=== PATIENT | male | born 1995 | race Caucasian/White ===

== ENCOUNTER 2017-07-04 17:26 | Emergency (ER) | payer SELFPAY ==
[2017-07-04] MEDS ORDERED: methylPREDNISolone 125 MG* 2 ML VIAL IM ONE (17:31)
--- NOTE | 2017-07-04 17:40 | UC ---
Allergic Reaction HPI - HPI Summary HPI Summary: Patient was here accompaning anouther patient, starte itching under his arm, took off his shirt to find large elevated hives under both axilla, began to spread over the stomach, back and legs. did not eat prior to arrival, did change his shirt, unknown cause, denies any SOB, or respiratory symptoms - History of Current Complaint Stated Complaint: HIVES/SKIN COMP. Time Seen by Provider: 07/04/17 17:30 Hx Obtained From: Patient Onset/Duration: Sudden Onset, Lasting Minutes Severity Initially: Moderate Severity Currently: Moderate Location: Diffuse Character: Pruritus, Hives Aggravating Factor(s): Nothing Alleviating Factor(s): Nothing - Allergies/Home Medications Allergies/Adverse Reactions: Allergies Allergy/AdvReac Type Severity Reaction Status Date / Time Diphenhydramine Allergy Mild Hives Verified 05/07/15 16:58 [From Benadryl] latex Allergy Hives Uncoded 10/28/15 16:17 pommegranates Allergy Swelling Uncoded 01/13/16 16:52 Of Face,Lips,& Throat PMH/Surg Hx/FS Hx/Imm Hx Previously Healthy: Yes - Surgical History Surgical History: None - Family History Known Family History: Positive: None Negative: Cardiac Disease, Hypertension - Social History Alcohol Use: None Substance Use Type: Marijuana Substance Use Comment - Amount & Last Used: 06/30/15 Smoking Status (MU): Never Smoked Tobacco Review of Systems Constitutional: Negative Skin: Rash Eyes: Negative ENT: Negative Respiratory: Negative Cardiovascular: Negative Gastrointestinal: Negative Genitourinary: Negative Motor: Negative Neurovascular: Negative Musculoskeletal: Negative Neurological: Negative Psychological: Negative Is Patient Immunocompromised?: No All Other Systems Reviewed And Are Negative: Yes Physical Exam Triage Information Reviewed: Yes Appearance: Well-Appearing, Well-Nourished, Pain Distress Vital Signs Reviewed: Yes Eye Exam: Normal ENT: Positive: Pharynx normal, TMs normal Dental Exam: Normal Neck exam: Normal Respiratory Exam: Normal Respiratory: Positive: Chest non-tender, Lungs clear, Normal breath sounds Cardiovascular Exam: Normal Cardiovascular: Positive: RRR, No Murmur, Pulses Normal Abdominal Exam: Normal Abdomen Description: Positive: Nontender, No Organomegaly, Soft Bowel Sounds: Positive: Present Musculoskeletal Exam: Normal Musculoskeletal: Positive: Strength Intact, ROM Intact, No Edema Neurological Exam: Normal Neurological: Positive: Alert, Muscle Tone Normal Psychological Exam: Normal Skin: Positive: Other - hives diffuse Allergic Reaction Course/Dx - Course Course Of Treatment: hx obtained, exam performed, meds reviewed, vs taken solumedrol given with improvment - Differential Dx/Diagnosis Differential Diagnosis/HQI/PQRI: Urticaria Provider Diagnoses: urticaria Discharge - Discharge Plan Condition: Stable Disposition: HOME Prescriptions: Cetirizine HCl [Zyrtec Allergy 10 MG TAB] 10 mg PO DAILY #30 cap predniSONE TAB* [Deltasone TAB*] 20 mg PO DAILY #18 tab Patient Education Materials: General Allergic Reaction (ED) Referrals: Non Staff,Doctor [Primary Care Provider] - Additional Instructions: 1. you were given a large dose of steroids today. 2. Start takeing the prednisone tomorrow morning. 3. Start a daily zyrtec for the next 2 weeks. 4. Follow up in ER if you develop any increasing symtpoms, difficulty breathing , throat itching or swelling, facial swelling, hives are getting worse.
[2017-07-04 17:41] VITALS: BP 120/70
== END 2017-07-04 18:11 | disposition home or self-care (01) ==
LOC: UCCORT 17:26
DX: L50.9 Urticaria, unspecified (principal)
CPT/HCPCS: 96372; 99211; G0463; J2930

== ENCOUNTER 2017-07-14 11:11 | Emergency (ER) | payer BC ==
[2017-07-14 11:32] VITALS: BP 117/71
--- NOTE | 2017-07-14 13:37 | UC ---
General HPI - HPI Summary HPI Summary: Patient presents to with CC of request for an anti-anxiety medication. He states he has a fear of dentists to the extreme of "passing out" at the thought or while in the chair at a dentists office. He has an appt next week on for appt to get 2 root canals. He has asked the dentist to provide sedation or an anti-anxiety medication. Dentist refuses. He is here for a medication to help with his appt. He has never had anxiety or depression medications prior. Denies history of anxiety/depression. Denies drug use or ETOH. - History of Current Complaint Chief Complaint: UCDentalProblem Stated Complaint: DENTAL/ANXIETY Time Seen by Provider: 07/14/17 11:40 Hx Obtained From: Patient Onset/Duration: Sudden Onset Timing: Constant Onset Severity: Mild Current Severity: Mild Pain Intensity: 3 - Allergy/Home Medications Allergies/Adverse Reactions: Allergies Allergy/AdvReac Type Severity Reaction Status Date / Time Diphenhydramine Allergy Mild Hives Verified 07/14/17 11:25 [From Benadryl] latex Allergy Hives Uncoded 07/14/17 11:25 pommegranates Allergy Swelling Uncoded 07/14/17 11:25 Of Face,Lips,& Throat Home Medications: Home Medications Cephalexin CAP* [Keflex 500 CAP*] 1 cap DAILY 07/14/17 [History Confirmed ] PMH/Surg Hx/FS Hx/Imm Hx Previously Healthy: Yes - Surgical History Surgical History: Yes Surgery Procedure, Year, and Place: RIGHT upper eyelid I/D of cyst - Family History Known Family History: Positive: None Negative: Cardiac Disease, Hypertension - Social History Occupation: Employed Full-time Lives: With Family Alcohol Use: None Substance Use Type: None Substance Use Comment - Amount & Last Used: 06/30/15 Smoking Status (MU): Never Smoked Tobacco - Immunization History Most Recent Influenza Vaccination: none 2017 Review of Systems Constitutional: Negative Skin: Negative Respiratory: Negative Cardiovascular: Negative Neurovascular: Negative Musculoskeletal: Negative Neurological: Negative Psychological: Negative Is Patient Immunocompromised?: No All Other Systems Reviewed And Are Negative: Yes Physical Exam Triage Information Reviewed: Yes Appearance: Well-Appearing, Well-Nourished Vital Signs: Initial Vital Signs Temp 98 F 07/14/17 11:26 Pulse 79 07/14/17 11:26 Resp 16 07/14/17 11:26 BP 117/71 07/14/17 11:26 Pulse Ox 98 07/14/17 11:26 Vital Signs Reviewed: Yes Eye Exam: Normal Eyes: Positive: Conjunctiva Clear Neck exam: Normal Neck: Positive: Supple, No Lymphadenopathy Respiratory Exam: Normal Respiratory: Positive: Chest non-tender, Lungs clear Cardiovascular Exam: Normal Cardiovascular: Positive: RRR Musculoskeletal Exam: Normal Musculoskeletal: Positive: Strength Intact Neurological Exam: Normal Neurological: Positive: Alert Psychological Exam: Normal Psychological: Positive: Normal Response To Family Skin Exam: Normal Course/Dx - Course Course Of Treatment: patient is given 1 tab 1mg ativan for his appt. I have discussed the risks and benefits as well as side effects. He has no history on file of drug abuse and has never taken anxiety or depression medications in the past. He has a friend at bedside who will be with him during the procedure and to provide a safe ride home. he is ok with discharge plan. - Differential Dx - Multi-Symptom Provider Diagnoses: Anxiety about procedure Discharge - Discharge Plan Condition: Stable Disposition: HOME Prescriptions: LORazepam TAB(*) [Ativan 1 MG TAB (*)] 1 mg PO SEE INSTRUCTIONS PRN #1 tab MDD 1 PRN Reason: Anxiety Patient Education Materials: Anxiety (ED) Referrals: Non Staff,Doctor [Primary Care Provider] - Additional Instructions: Take the one ativan 1 hour prior to your appt. Deep breaths and focus on your breathing
== END 2017-07-14 12:23 | disposition home or self-care (01) ==
LOC: UCCORT 11:11
DX: F41.9 Anxiety disorder, unspecified (principal); Z91.040 Latex allergy status; Z91.018 Allergy to other foods
CPT/HCPCS: 99212; G0463

== ENCOUNTER 2018-02-26 10:21 | Emergency (ER) | payer BC ==
[2018-02-26 10:34] VITALS: BP 121/73
[2018-02-26] MEDS ORDERED: Ondansetron ODT TAB* 4 MG PO ONE (10:45)
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
== END 2018-02-26 12:05 | disposition short-term general hospital (02) ==
LOC: UCEAST 10:21
DX: S59.911A Unspecified injury of right forearm, initial encounter (principal); S06.0X1A Concussion with loss of consciousness of 30 minutes or less, initial encounter; Y00.XXXA Assault by blunt object, initial encounter; Y93.9 Activity, unspecified; Y92.9 Unspecified place or not applicable; J45.909 Unspecified asthma, uncomplicated; Z91.040 Latex allergy status

== ENCOUNTER 2018-02-26 12:08 | Emergency (ER) | payer BC ==
[2018-02-26] MEDS ORDERED: Ondansetron INJ* 2 MG/ML VIAL IV ONE (12:22)
--- NOTE | 2018-02-26 13:15 | RAD ---
HISTORY: Chest pain COMPARISONS: March 29, 2005 VIEWS: 1: frontal portable view of the chest at 12:41 PM FINDINGS: LINES AND TUBES: None. CARDIOMEDIASTINAL SILHOUETTE: The cardiomediastinal silhouette is normal for portable technique. PLEURA: The costophrenic angles are sharp. No pleural abnormalities are noted. LUNG PARENCHYMA: The lungs are clear. ABDOMEN: The upper abdomen is clear. There is no subphrenic gas. BONES AND SOFT TISSUES: No bone or soft tissue abnormalities are noted. IMPRESSION: NO ACTIVE CARDIOPULMONARY DISEASE.
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
[2018-02-26] MEDS ORDERED: LORazepam INJ* 2 MG/ML 1 ML VIAL IV PUSH ONE (13:22)
[2018-02-26 13:23] LABS: INR 1.02 (0.77-1.02)
[2018-02-26 13:24] LABS: EGFR Non-African American 111.7 (>60)
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
[2018-02-26 13:44] LABS: ABS Basophils 0 10^3/ul (0-0.2); ABS Eosinophils 0 10^3/ul (0-0.6); ABS Lymphocytes 0.4 10^3/ul (1.0-4.8); ABS Monocytes 0.4 10^3/ul (0-0.8); ABS Neutrophils 11.2 10^3/ul (1.5-7.7); ABS Nucleated RBC 0 10^3/ul; Eosinophil % 0 % (0-6); Hematocrit 42 % (42-52); Hemoglobin 15.3 g/dl (14.0-18.0); Lymphocyte % 3.3 % (25-47); Mean Corpuscular HGB Conc 37 g/dl (31-36); Mean Corpuscular Hemoglobin 31 pg (27-31); Mean Corpuscular Volume 84 fL (80-94); Mean Platelet Volume 7.7 um3 (7.4-10.4); Nucleated Red Blood Cells % 0.4; Platelet Count 270 10^3/ul (150-450); Red Blood Count 4.94 10^6/ul (4.0-5.4); Red Cell Distribution Width 15 % (10.5-15)
[2018-02-26] MEDS ORDERED: Ketorolac INJ* 30 MG/ML 1 ML VIAL IV PUSH ONE (14:01)
[2018-02-26] MEDS ORDERED: Metoclopramide IV* 5 MG/ML 2 ML VIAL IV ONE (14:02)
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
[2018-02-26 15:15] VITALS: BP 107/54
== END 2018-02-26 15:12 | disposition home or self-care (01) ==
LOC: ED 12:08
DX: S09.90XA Unspecified injury of head, initial encounter (principal); M79.631 Pain in right forearm; Y04.2XXA Assault by strike against or bumped into by another person, initial encounter; Y92.9 Unspecified place or not applicable; R07.9 Chest pain, unspecified
CPT/HCPCS: 36415; 70450; 71045; 80053; 82550; 82553; 83605; 83735; 83874; 83880; 84484; 85025; 85610; 85730; 93005; 96374; 96375; 99283; J1885; J2060; J2405; J2765

== ENCOUNTER 2018-03-03 10:06 | Emergency (ER) | payer BC ==
[2018-03-03 10:40] VITALS: BP 107/69
--- NOTE | 2018-03-03 11:48 | RAD ---
HISTORY: Nausea, head injury COMPARISONS: February 26, 2018 TECHNIQUE: Multiple contiguous axial CT scans were obtained of the head without intravenous contrast. FINDINGS: HEMORRHAGE/INFARCT: There is no hemorrhage or acute infarct. MASSES/SHIFT: There is no mass or shift. EXTRA-AXIAL SPACES: There are no extra-axial fluid collections. SULCI AND VENTRICLES: The sulci and ventricles are normal in size and position for the patient's stated age. CEREBRUM: There are no focal parenchymal abnormalities. BRAINSTEM: There are no focal parenchymal abnormalities. CEREBELLUM: There are no focal parenchymal abnormalities. VESSELS: The vessels are grossly normal. PARANASAL SINUSES: The paranasal sinuses are clear. ORBITS: The orbits are unremarkable. BONES AND SOFT TISSUE: No bone or soft tissue abnormalities are noted. OTHER: None IMPRESSION: NO ACUTE INTRACRANIAL PATHOLOGY.
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
== END 2018-03-03 12:00 | disposition home or self-care (01) ==
LOC: UCEAST 10:06
DX: F07.81 Postconcussional syndrome (principal); R11.0 Nausea; G44.309 Post-traumatic headache, unspecified, not intractable; Y92.9 Unspecified place or not applicable; Z91.040 Latex allergy status; Z91.018 Allergy to other foods; Z88.8 Allergy status to other drugs, medicaments and biological substances; Y08.89XA Assault by other specified means, initial encounter
CPT/HCPCS: 70450; 99212; G0463

== ENCOUNTER 2018-05-27 17:20 | Emergency (ER) | payer BC ==
[2018-05-27] MEDS ORDERED: NS 0.9% 1000 ML* 1,000 ML IV ONE (17:53)
[2018-05-27] MEDS ORDERED: Ketorolac INJ* 30 MG/ML 1 ML VIAL IV PUSH ONE (17:53)
[2018-05-27] MEDS ORDERED: Ondansetron INJ* 2 MG/ML VIAL IV ONE (17:53)
[2018-05-27 17:57] LABS: ABS Basophils 0 10^3/ul (0-0.2); ABS Eosinophils 0.4 10^3/ul (0-0.6); ABS Lymphocytes 1.3 10^3/ul (1.0-4.8); ABS Monocytes 0.5 10^3/ul (0-0.8); ABS Neutrophils 3.3 10^3/ul (1.5-7.7); ABS Nucleated RBC 0 10^3/ul; Eosinophil % 7.2 % (0-6); Hematocrit 41 % (42-52); Hemoglobin 15.3 g/dl (14.0-18.0); Lymphocyte % 23.5 % (25-47); Mean Corpuscular HGB Conc 37 g/dl (31-36); Mean Corpuscular Hemoglobin 31 pg (27-31); Mean Corpuscular Volume 84 fL (80-94); Mean Platelet Volume 7.5 um3 (7.4-10.4); Nucleated Red Blood Cells % 0.1; Platelet Count 246 10^3/ul (150-450); Red Cell Distribution Width 14 % (10.5-15); White Blood Count 5.6 10^3/ul (3.5-10.8)
--- NOTE | 2018-05-27 18:02 | ED ---
GI/ HPI - HPI Summary HPI Summary: 22 male presents with abdominal pain for the past week. States that is greatest in his right lower quadrant and radiates up to his right upper quadrant. He said his had this pain before 2 years ago and had a scope done and nothing was found. He admits to nausea but denies any vomiting. No blood in his stool. Last bowel movement was yesterday and was normal. No diarrhea constipation. He denies any dysuria, urgency, frequency or hematuria. No testicular pain. No flank pain. States pain is sharp in nature. He admits to decrease in appetite. Pain does not change with food. No previous abdominal surgeries. No fevers. Has history of asthma. States pain is worse when he walks. The pain is better when he sits. He hasn't taking anything for his pain. - History of Current Complaint Chief Complaint: EDAbdPain Time Seen by Provider: 05/27/18 17:37 Stated Complaint: ABD PAIN-SENT FROM [facility] Pain Intensity: 9 - Allergy/Home Medications Allergies/Adverse Reactions: Allergies Allergy/AdvReac Type Severity Reaction Status Date / Time diphenhydramine Allergy Hives Verified 05/27/18 17:32 latex Allergy Hives Verified 05/27/18 17:32 pomegranate Allergy Swelling Verified 05/27/18 17:32 Of Face,Lips,& Throat PMH/Surg Hx/FS Hx/Imm Hx Endocrine/Hematology History: Denies: Hx Diabetes, Hx Thyroid Disease Cardiovascular History: Denies: Hx Hypertension Respiratory History: Reports: Hx Asthma Denies: Hx Chronic Obstructive Pulmonary Disease (COPD) GI History: Denies: Hx Ulcer - Surgical History Surgery Procedure, Year, and Place: RIGHT upper eyelid I/D of cyst Infectious Disease History: No Infectious Disease History: Denies: Hx Clostridium Difficile, Hx Hepatitis, Hx Human Immunodeficiency Virus (HIV), Hx of Known/Suspected MRSA, Hx Shingles, Hx Tuberculosis, Hx Known/ Suspected VRE, Hx Known/Suspected VRSA, History Other Infectious Disease, Traveled Outside the [place] in Last 30 Days - Family History Known Family History: Positive: None, Other - [place] Negative: Cardiac Disease, Hypertension Family History: Per patient and mother, no FHx of [place] or sudden below the age of 55 - Social History Alcohol Use: None Hx Substance Use: No Substance Use Type: Reports: Marijuana Substance Use Comment - Amount & Last Used: 06/30/15 Smoking Status (MU): Never Smoked Tobacco Review of Systems Negative: Fever Negative: Chest Pain Negative: Shortness Of Breath Positive: Abdominal Pain, Nausea. Negative: Vomiting, Diarrhea All Other Systems Reviewed And Are Negative: Yes Physical Exam Triage Information Reviewed: Yes Vital Signs On Initial Exam: Initial Vitals Temp Pulse Resp BP Pulse Ox 98.8 F 80 16 134/84 100 05/27/18 17:28 05/27/18 17:28 05/27/18 17:28 05/27/18 17:28 05/27/18 17:28 Vital Signs Reviewed: Yes Appearance: Positive: Well-Appearing Skin: Positive: Warm, Dry Head/Face: Positive: Normal Head/Face Inspection Eyes: Positive: Normal, Conjunctiva Clear ENT: Positive: Pharynx normal Respiratory/Lung Sounds: Positive: Clear to Auscultation, Breath Sounds Present Cardiovascular: Positive: Normal, RRR Abdomen Description: Positive: Soft, [place] Tenderness, Other: - tenderness right upper and lower quadrant, pos lyons Bowel Sounds: Positive: Present Musculoskeletal: Positive: Normal Neurological: Positive: Normal Psychiatric: Positive: Normal Diagnostics - Vital Signs Vital Signs Temp Pulse Resp BP Pulse Ox 05/27/18 17:28 98.8 F 80 16 134/84 100 - Laboratory Lab Results: Lab Results 05/27/18 Range/Units 17:49 WBC 5.6 (3.5-10.8) 10^3/ul RBC 4.90 (4.00-5.40) 10^6/ul Hgb 15.3 (14.0-18.0) g/dl Hct 41 L (42-52) % MCV 84 (80-94) fL MCH 31 (27-31) pg MCHC 37 H (31-36) g/dl RDW 14 (10.5-15) % Plt Count 246 (150-450) 10^3/ul MPV 7.5 (7.4-10.4) um3 Neut % (Auto) 59.9 (38-83) % Lymph % (Auto) 23.5 L (25-47) % [place] % (Auto) 8.8 H (0-7) % Eos % (Auto) 7.2 H (0-6) % Baso % (Auto) 0.6 (0-2) % Absolute Neuts (auto) 3.3 (1.5-7.7) 10^3/ul Absolute Lymphs (auto) 1.3 (1.0-4.8) 10^3/ul Absolute Monos (auto) 0.5 (0-0.8) 10^3/ul Absolute Eos (auto) 0.4 (0-0.6) 10^3/ul Absolute Basos (auto) 0 (0-0.2) 10^3/ul Absolute Nucleated RBC 0 10^3/ul Nucleated RBC % 0.1 Result Diagrams: 05/27/18 17:49 05/27/18 17:49 Lab Statement: Any lab studies that have been ordered have been reviewed, and results considered in the medical decision making process. - CT abd CT Interpretation: Positive (See Comments) - IMPRESSION: 1. Right lower quadrant epiploic appendagitis. 2. No other acute findings. Specifically, normal appendix CT Interpretation Completed By: Radiologist - Ultrasound No standard instances Ultrasound Interpretation: Positive (See Comments) - IMPRESSION: THE RIGHT KIDNEY IS SMALLER THAN EXPECTED FOR AGE MEASURING UP TO 9.2 CM. OTHERWISE UNREMARKABLE ULTRASOUND OF THE RIGHT UPPER QUADRANT. Ultrasound Interpretation Completed By: Radiologist Re-Evaluation - Re-Evaluation First Eval Re-Evaluation Time: 19:06 Change: Improved Comment: no longer nauseous after pain meds and nausea meds GIGU Course/Dx - Course Course Of Treatment: 22 male presents with abdominal pain for the past week. States that is greatest in his right lower quadrant and radiates up to his right upper quadrant. He said his had this pain before 2 years ago and had a scope done and nothing was found. He admits to nausea but denies any vomiting. No blood in his stool. Last bowel movement was yesterday and was normal. No diarrhea constipation. He denies any dysuria, urgency, frequency or hematuria. No testicular pain. No flank pain. States pain is sharp in nature. He admits to decrease in appetite. Pain does not change with food. No previous abdominal surgeries. No fevers. Has history of asthma. States pain is worse when he walks. The pain is better when he sits. He hasn't taking anything for his pain. On exam tenderness in right upper and right lower quadrant. White blood cell count normal. crp normal. bilirubin 2.3. gallbladder u/s normal. urine normal CT shows epiploic appendicitis. told to take ibuprofen for pain. told if develops fevers to return. patient understand and agrees with plan. - Diagnoses Differential Diagnoses - Male: Appendicitis, Gall Bladder Disease, Urinary Tract Infection Provider Diagnoses: Epiploic appendagitis Discharge - Sign-Out/Discharge Documenting (check all that apply): Patient Departure - Discharge Plan Condition: Good Disposition: HOME Prescriptions: Ondansetron ODT TAB* [Zofran 4 MG Odt TAB*] 4 mg PO Q6H PRN #12 tab.odt PRN Reason: Nausea Patient Education Materials: Abdominal Pain (ED) Referrals: Austin Barba MD [Medical Doctor] - [facility] [Outside] Additional Instructions: Take zofran every 6 hours as needed for nausea Take ibuprofen or Tylenol for pain as needed every 6 hours Est care with primary Follow up with GI if needed Return to ED if develop any new or worsening symptoms - Billing Disposition and Condition Condition: GOOD Disposition: Home
[2018-05-27 18:12] LABS: EGFR Non-African American 118.1 (>60)
[2018-05-27] MEDS ORDERED: Iohexol 300* (CONTRAST) 10 ML SDV IV ONE (18:28)
--- NOTE | 2018-05-27 18:42 | RAD ---
HISTORY: RUQ pain COMPARISONS: None TECHNIQUE: Multiple transverse and longitudinal ultrasound images were obtained of the right upper quadrant of the abdomen using grayscale and color Doppler imaging. FINDINGS: LIVER: The liver is normal in shape, size, contour, and echogenicity. There are no focal parenchymal masses. There is normal hepatopedal flow of the portal vein on Doppler imaging. BILIARY TREE: There is no intrahepatic or extrahepatic biliary dilatation. The common duct measures 0.3 cm. GALLBLADDER: The gallbladder is well-visualized. There is no cholelithiasis, gallbladder wall thickening, pericholecystic fluid, or sonographic Wall[place] sign. PANCREAS: The head of the pancreas is unremarkable. The tail of the pancreas is not well visualized secondary to overlying bowel gas. RIGHT KIDNEY: The kidney is somewhat smaller than expected for age measuring up to 9.2 centers. There is no hydronephrosis or nephrolithiasis. The right kidney measures 9.2 x 4.9 x 5.1 cm. AORTA AND IVC: The aorta and IVC are unremarkable. FLUID: There are no pleural effusions. There is no free fluid within the hepatorenal recess. OTHER FINDINGS: None. IMPRESSION: THE RIGHT KIDNEY IS SMALLER THAN EXPECTED FOR AGE MEASURING UP TO 9.2 CM. OTHERWISE UNREMARKABLE ULTRASOUND OF THE RIGHT UPPER QUADRANT.
[2018-05-27 19:07] LABS: Urine Appearance Clear; Urine Blood Negative (Negative); Urine Color Yellow; Urine Ketones Negative (Negative); Urine Protein Negative (Negative); Urine Specific Gravity 1.012 (1.010-1.030); Urine Urobilinogen Positive (Negative)
--- NOTE | 2018-05-27 21:28 | RAD ---
EXAM: CT Abdomen and Pelvis With Intravenous Contrast CLINICAL HISTORY: 22 years old, male; Pain; Abdominal pain; Localized; Right; Patient HX: Rlq pain x 1 week with no n/v/d; Additional info: Right side abd pain TECHNIQUE: Axial computed tomography images of the abdomen and pelvis with intravenous contrast. Coronal and sagittal reformatted images were created and reviewed. CONTRAST: 85 mL of OMNIPAQUE administered intravenously. COMPARISON: No relevant prior studies available. FINDINGS: Lung bases: Unremarkable. No mass. No consolidation. ABDOMEN: Liver: Unremarkable. No mass. Gallbladder and bile ducts: Unremarkable. No calcified stones. No ductal dilation. Pancreas: Unremarkable. No mass. No ductal dilation. Spleen: Unremarkable. No splenomegaly. Adrenals: Unremarkable. No mass. Kidneys and ureters: Unremarkable. No solid mass. No hydronephrosis. Stomach and bowel: Unremarkable. No obstruction. No mucosal thickening. PELVIS: Appendix: Normal-appearing appendix. Bladder: Unremarkable. No mass. Reproductive: Unremarkable as visualized. ABDOMEN and PELVIS: Intraperitoneal space: Focal area of fat stranding in the right lower quadrant anteriorly likely represents epiploic appendagitis. No free air. No significant fluid collection. Bones/joints: No acute fracture. No dislocation. Soft tissues: Small fat-containing right inguinal hernia. Vasculature: Unremarkable. No abdominal aortic aneurysm. Lymph nodes: Unremarkable. No enlarged lymph nodes. IMPRESSION: 1. Right lower quadrant epiploic appendagitis. 2. No other acute findings. Specifically, normal appendix. R0
[2018-05-27 23:56] VITALS: BP 113/63
== END 2018-05-27 22:17 | disposition home or self-care (01) ==
LOC: ED 17:20
DX: K63.89 Other specified diseases of intestine (principal); Z91.040 Latex allergy status; Z88.8 Allergy status to other drugs, medicaments and biological substances
CPT/HCPCS: 36415; 74177; 76705; 80053; 81003; 83690; 85025; 86140; 86308; 96374; 96375; 99283; J1885; J2405; Q9967

== ENCOUNTER 2019-04-02 19:42 | Emergency (ER) | payer BC ==
[2019-04-02 20:10] VITALS: BP 133/80
--- NOTE | 2019-04-02 20:15 | UC ---
[facility] HPI - HPI Summary HPI Summary: 23 y/o male presents to the urgent care Pt is being treated for pain since hernia surgery since 09/30/18. Pt is taking lots of ibuprofen and hydrocodone and cannot sleep because of the pain, jittery, nauseated d/t pain. - History of Current Complaint Chief Complaint: UCAbdominalPain Stated Complaint: CRACKED TOOTH Time Seen by Provider: 04/02/19 20:12 Hx Obtained From: Patient Pain Intensity: 10 - Allergies/Home Medications Allergies/Adverse Reactions: Allergies Allergy/AdvReac Type Severity Reaction Status Date / Time diphenhydramine Allergy Hives Verified 04/02/19 20:10 latex Allergy Hives Verified 04/02/19 20:10 pomegranate Allergy Swelling Verified 04/02/19 20:10 Of Face,Lips,& Throat Home Medications: Home Medications Hydrocodone/Acetaminophen [Hydrocodone/Acetaminophen 5-325 mg] 2 tab PO Q6H PRN 04/02/19 [History Confirmed 04/02/19] Ibuprofen TAB* [Motrin TAB* 600 MG] 600 mg PO Q6H PRN 04/02/19 [History Confirmed 04/02/19] PMH/Surg Hx/FS Hx/Imm Hx - Surgical History Surgical History: Yes Surgery Procedure, Year, and Place: Hernia repair, 09/26. RIGHT upper eyelid I/ D of cyst - Family History Known Family History: Positive: None, Other - [place] Negative: Cardiac Disease, Hypertension Family History: Per patient and mother, no FHx of [place] or sudden below the age of 55 - Social History Alcohol Use: None Substance Use Type: Marijuana Substance Use Comment - Amount & Last Used: daily Smoking Status (MU): Never Smoked Tobacco - Immunization History Most Recent Influenza Vaccination: none 2017 Physical Exam Vital Signs: Initial Vital Signs Temp 100.4 F 04/02/19 20:02 Pulse 82 04/02/19 20:02 Resp 16 04/02/19 20:02 BP 133/80 04/02/19 20:02 Pulse Ox 100 04/02/19 20:02 Dental Complaint Course/Dx - Differential Dx/Diagnosis Differential Diagnosis/Dx: Other Provider Diagnosis: Cyclic vomiting syndrome, Right lower quadrant abdominal pain Discharge - Discharge Plan Referrals: No Primary Care Phys,NOPCP [Primary Care Provider] -
[2019-04-02] MEDS ORDERED: Ondansetron ODT TAB* 4 MG PO ONE (20:16)
[2019-04-02] MEDS ORDERED: NS 0.9% 1000 ML** 1,000 ML IV ONE (20:44)
--- NOTE | 2019-04-02 20:50 | UC ---
Abdominal Pain Male HPI - HPI Summary HPI Summary: 23 y/o male presents to the urgent care accompany by sister c/o RLQ abdominal pain, N/V and RT upper jaw pain w/ a fracture molar and CARLOS since yesterday. Pt reports Hx of RT inguinal hernia repair on 09/2018 and despite surgery he still presents w/ exacerbation of his abdominal pain, He is being managed at [facility] by Surgeon Dr Sisi Ceja who did his surgery. Pt report upper jaw pain started yesterday afternoon. He smoke Marijuana and the he took Ibuprofen 600mg PO and 2 tabs of Ackley w/o any relief of his dental pain. Then, his abdominal pain started. He couldn't sleep last night due to abdominal pain, chills and Nausea. This morning he took Ibuprofen 800mg PO and went to work. He didn't eat anything today. He couldn't work well due to pain. He went home and then N/ V started w/ multiple episodes, w/ chills. Abdominal pain,now is 10/10 worse in the RLQ which he states it hasn't been so severe before. Last summer is when abdominal pain started,he first went to ER and Dx w/ epliploic appendigits and since then he has been w/ recurrent episodes of RLQ abdominal pain w/o complete resolution. He has developed RT side CARLOS for the past 2 moths, he has an schedule MRI in 2 days. He also has schedule an appt w/ dentist to remove fractured molar in a few day. Pt denies fever, SOB, respiratory distress, chest pain, diarrhea, constipation, urinary symptoms. Dr Ceja has Rx lately Tramadol PO for pain which he still has at home. - History of Current Complaint Chief Complaint: UCAbdominalPain Stated Complaint: CRACKED TOOTH Time Seen by Provider: 04/02/19 20:12 Hx Obtained From: Patient Onset/Duration: Gradual Onset, Lasting Days - 1 day, Still Present, Worse Since - this morning Timing: Constant Severity Initially: Mild Severity Currently: Moderate Pain Intensity: 10 Pain Scale Used: 0-10 Numeric Location: Discrete At: RLQ, Other - RT upper jaw pain, Radiates to: Inguinal - RT inguinal. Hx RT inguinal repair surgery in 09/2018 Character: Sharp Aggravating Factor(s): Food Alleviating Factor(s): Nothing Associated Signs And Symptoms: Positive: Decreased Appetite, Nausea, Vomiting. Negative: Fever, Back Pain, Constipation, Urinary Symptoms - Risk Factors Testicular Torsion: Negative Cardiac Risk Factors: Negative - Allergies/Home Medications Allergies/Adverse Reactions: Allergies Allergy/AdvReac Type Severity Reaction Status Date / Time diphenhydramine Allergy Hives Verified 04/02/19 20:10 latex Allergy Hives Verified 04/02/19 20:10 pomegranate Allergy Swelling Verified 04/02/19 20:10 Of Face,Lips,& Throat Home Medications: Home Medications Hydrocodone/Acetaminophen [Hydrocodone/Acetaminophen 5-325 mg] 2 tab PO Q6H PRN 04/02/19 [History Confirmed 04/02/19] Ibuprofen TAB* [Motrin TAB* 600 MG] 600 mg PO Q6H PRN 04/02/19 [History Confirmed 04/02/19] PMH/Surg Hx/FS Hx/Imm Hx Previously Healthy: Yes - Pt denies PMHX - Surgical History Surgical History: Yes Surgery Procedure, Year, and Place: Hernia repair, 09/26. RIGHT upper eyelid I/ D of cyst - Family History Known Family History: Positive: None, Other - [place] Negative: Cardiac Disease, Hypertension Family History: Per patient and mother, no FHx of [place] or sudden below the age of 55 - Social History Alcohol Use: None Substance Use Type: Marijuana Substance Use Comment - Amount & Last Used: daily Smoking Status (MU): Never Smoked Tobacco - Immunization History Most Recent Influenza Vaccination: none 2016 Review of Systems All Other Systems Reviewed And Are Negative: Yes Constitutional: Positive: Chills Skin: Positive: Negative Eyes: Positive: Negative ENT: Positive: Dental Pain - RT upper jaw pain w/ fracture molar Respiratory: Positive: Negative Cardiovascular: Positive: Negative Gastrointestinal: Positive: Abdominal Pain - RLQ adominal pain, Vomiting, Nausea Genitourinary: Positive: Negative Motor: Positive: Negative Neurovascular: Positive: Negative Musculoskeletal: Positive: Negative Neurological: Positive: Headache Psychological: Positive: Negative Is Patient Immunocompromised?: No Physical Exam - Summary Physical Exam Summary: Vital Signs Reviewed: Yes General:Patient is a well developed and nourished male w/ severe pain distress and not respiratory distress. Eyes: Positive: Conjunctiva Clear - PERRLA, EOMI, fundi grossly normal ENT: Positive: Normal ENT inspection, Hearing grossly normal, Pharynx normal, TMs normal Neck: Positive: Supple, Nontender, No Lymphadenopathy Respiratory: Positive: Chest non-tender, Lungs clear, Normal breath sounds, No respiratory distress Cardiovascular: Positive: RRR,S1 and S2 present, No Murmur, Pulses Normal, Brisk Capillary Refill Abdomen Description: Positive: Abd: Flat with no distention. No surface trauma , RLQ w/ scar around inguinal area. hyperactive bowel sounds present in all four quadrants. diffuse tenderness,mild guarding specailly on RLQ, no rigidity to palpation. No masses palpated, no pulsation in epigastric area. No organomegaly. Negative [place] signs. Positive periumbilical tenderness. No rebound in the lower quadrants. NT over McBurneys point. Good femoral pulses bilaterally. No hernia noted. No CVAT bilaterally Musculoskeletal: Positive: Strength Intact, ROM Intact, No Edema,FROM in all major joints, no edema, no cyanosis or clubbing. Neuro: Alert and oriented x 3. No acute neurological deficits. Speech is normal. Psychological: WNL Skin: Dry and warm Triage Information Reviewed: Yes Vital Signs: Initial Vital Signs Temp 100.4 F 04/02/19 20:02 Pulse 82 04/02/19 20:02 Resp 16 04/02/19 20:02 BP 133/80 04/02/19 20:02 Pulse Ox 100 04/02/19 20:02 Abd Pain Male Course/Dx - Course Course Of Treatment: 23 y/o male presents to the urgent care accompany by sister c/o RLQ abdominal pain, N/V and RT upper jaw pain w/ a fracture molar and CARLOS since yesterday. Pt reports Hx of RT inguinal hernia repair on 09/2018 and despite surgery he still presents w/ exacerbation of his abdominal pain, He is being managed at [facility] by Surgeon Dr Sisi Ceja who did his surgery. Pt report upper jaw pain started yesterday afternoon. He smoke Marijuana and the he took Ibuprofen 600mg PO and 2 tabs of Ackley w/o any relief of his dental pain. Then, his abdominal pain started. He couldn't sleep last night due to abdominal pain, chills and Nausea. This morning he took Ibuprofen 800mg PO and went to work. He didn't eat anything today. He couldn't work well due to pain. He went home and then N/ V started w/ multiple episodes, w/ chills. Abdominal pain,now is 10/10 worse in the RLQ which he states it hasn't been so severe before. Last summer is when abdominal pain started,he first went to ER and Dx w/ epliploic appendigits and since then he has been w/ recurrent episodes of RLQ abdominal pain w/o complete resolution. He has developed RT side CARLOS for the past 2 moths, he has an schedule MRI in 2 days. He also has schedule an appt w/ dentist to remove fractured molar in a few day. Pt denies fever, SOB, respiratory distress, chest pain, diarrhea, constipation, urinary symptoms. Dr Ceja has Rx lately Tramadol PO for pain which he still has at home. Hx obtained. Pt is Hemodynamically stable, febrile 100.4, vomiting w/ hyperactive bowel sounds present in all four quadrants. RLQ abdominal tenderness, w/ guarding and postive McBurney's point tenderness and RT upper jaw fracture molar #3 on examination. Pt smoke Marijuana yesterday and mixed w/ Ibuprofen PO and 2 tabs of Ackley PO, Pt w/ possible cyclic vomiting over night. However, I think Pt needs a higher level of care to r/o appendicitis, obstruction, or other abdominal abnormality. I discusses Pt' symptoms w w/ Dr Costa who agrees Pt should be further manage at [facility]. Pt given Zofran PO and IV fluids. Pt transferred by [facility]. I discussed Pt's symptoms w/ OLGA Ho who accepted the patient . Pt left the clinic hemodynamically stable , A&OX3 - Differential Dx/Clinical Impression Differential Diagnosis/HQI/PQRI: Appendicitis, Bowel Obstruction, Constipation, Other - cyclic vomiting Provider Diagnosis: Cyclic vomiting syndrome, Right lower quadrant abdominal pain, Pain due to dental caries Discharge - Sign-Out/Discharge Documenting (check all that apply): Patient Departure - Pt transfer [facility] for further evalaution and treatment for intractable abdomianl pain All imaging exams completed and their final reports reviewed: No Studies - Discharge Plan Condition: Stable Disposition: TRANS HIGHER LVL OF CARE FAC Referrals: No Primary Care Phys,NOPCP [Primary Care Provider] - - Billing Disposition and Condition Condition: STABLE Disposition: Trans Higher Lvl of Care Fac
== END 2019-04-02 21:10 | disposition short-term general hospital (02) ==
LOC: UCEAST 19:42
DX: G43.A0 Cyclical vomiting, in migraine, not intractable (principal); R10.31 Right lower quadrant pain; K02.9 Dental caries, unspecified
CPT/HCPCS: 96360; 99213; A9270-GY; G0463

== ENCOUNTER 2019-04-02 21:30 | Emergency (ER) | payer BC ==
[2019-04-02] MEDS ORDERED: Ondansetron INJ* 2 MG/ML VIAL IV ONE (21:47)
[2019-04-02] MEDS ORDERED: NS 0.9% 1000 ML** 1,000 ML IV ONE (21:47)
[2019-04-02] MEDS ORDERED: Ketorolac INJ* 30 MG/ML 1 ML VIAL IV ONE (22:20)
[2019-04-02] MEDS ORDERED: Morphine 4 MG/ML VIAL (1 ml) 4 MG/ML VIAL IV ONE (22:20)
[2019-04-02 22:21] LABS: ABS Eosinophils 0.1 10^3/ul (0-0.6); ABS Lymphocytes 0.6 10^3/ul (1.0-4.8); ABS Monocytes 0.5 10^3/ul (0-0.8); ABS Neutrophils 7.4 10^3/ul (1.5-7.7); Eosinophil % 0.8 %; Hematocrit 42 % (42-52); Hemoglobin 15.5 g/dL (14.0-18.0); Lymphocyte % 7.2 %; Mean Corpuscular HGB Conc 37 g/dL (31-36); Mean Corpuscular Hemoglobin 32 pg (27-31); Mean Corpuscular Volume 86 fL (80-94); Mean Platelet Volume 7.5 fL (7.4-10.4); Nucleated Red Blood Cells % 0.1; Platelet Count 254 10^3/uL (150-450); Red Blood Count 4.89 10^6 /uL (4.18-5.48); Red Cell Distribution Width 15 % (10-15); White Blood Count 8.6 10^3/uL (3.5-10.8)
[2019-04-02 22:37] LABS: ALT 11 U/L (7-52); AST 14 U/L (13-39); Albumin 4.7 g/dL (3.2-5.2); Albumin/Globulin Ratio 1.7 (1-3); Alkaline Phosphatase 59 U/L (34-104); Anion Gap 9 mmol/L (2-11); Blood Urea Nitrogen 5 mg/dL (6-24); C Reactive Protein < 1.00 mg/L (<8.01); CO2 Carbon Dioxide 25 mmol/L (22-32); Calcium 9.6 mg/dL (8.6-10.3); Chloride 106 mmol/L (101-111); EGFR African American 164.9 (>60); EGFR Non-African American 136.3 (>60); Globulin 2.7 g/dL (2-4); Glucose 110 mg/dL (70-100); Potassium 3.5 mmol/L (3.5-5.0); Sodium 140 mmol/L (135-145); Total Protein 7.4 g/dL (6.4-8.9)
[2019-04-02] MEDS ORDERED: Iohexol 300* (CONTRAST) 10 ML SDV IV ONE (22:48)
--- NOTE | 2019-04-03 01:12 | ED ---
Complex/Multi-Sys Presentation - HPI Summary HPI Summary: Patient complains of persistent right lower quadrant pain 6 months since right inguinal hernia surgery at [facility]. Abdominal pain is constant, daily, has been evaluated by original hernia surgeon with no definitive diagnosis. Also complains of persistent right-sided headache 2 months with associated nausea. Headache described as right-sided, constant, associated with nausea and photophobia. Has MRI pending this coming Tuesday. Also complains of right- sided tooth pain 1 month with dentist appointment pending this Tuesday for tooth removal. Patient has existing prescription for tramadol for pain. Denies fever, cough, sore throat, CP, SOB, N/V/D, change in urine, change in BM , penile or testicular symptoms. Medical history is asthma. Abdominal surgical history is hernia repair September 2018. - History Of Current Complaint Chief Complaint: EDAbdPain Time Seen by Provider: 04/02/19 21:45 Hx Obtained From: Patient Onset/Duration: Gradual Onset, Lasting Weeks Timing: Constant Severity Currently: Severe Severity Initially: Severe Character: Throbbing Associated Signs And Symptoms: Positive: Headache, Nausea, Abdominal Pain, Decreased Oral Intake - Allergies/Home Medications Allergies/Adverse Reactions: Allergies Allergy/AdvReac Type Severity Reaction Status Date / Time diphenhydramine Allergy Hives Verified 04/02/19 20:10 latex Allergy Hives Verified 04/02/19 20:10 pomegranate Allergy Swelling Verified 04/02/19 20:10 Of Face,Lips,& Throat Home Medications: Home Medications Tramadol HCl 50 mg PO Q6HR PRN 04/02/19 [History Confirmed 04/02/19] PMH/Surg Hx/FS Hx/Imm Hx Endocrine/Hematology History: Denies: Hx Diabetes, Hx Thyroid Disease Cardiovascular History: Denies: Hx Hypertension Respiratory History: Reports: Hx Asthma Denies: Hx Chronic Obstructive Pulmonary Disease (COPD) GI History: Denies: Hx Ulcer History: Denies: Hx Renal Disease Sensory History: Denies: Hx Legally Blind Opthamlomology History: Reports: Hx Eye Prosthesis EENT History: Reports: Hx Deafness Neurological History: Reports: Hx Dementia Psychiatric History: Reports: Hx Autism - Surgical History Surgery Procedure, Year, and Place: Hernia repair, 09/26. RIGHT upper eyelid I/ D of cyst Infectious Disease History: No Infectious Disease History: Denies: Hx Clostridium Difficile, Hx Hepatitis, Hx Human Immunodeficiency Virus (HIV), Hx of Known/Suspected MRSA, Hx Shingles, Hx Tuberculosis, Hx Known/ Suspected VRE, Hx Known/Suspected VRSA, History Other Infectious Disease, Traveled Outside the [place] in Last 30 Days - Family History Known Family History: Positive: None, Other - [place] Negative: Cardiac Disease, Hypertension Family History: Per patient and mother, no FHx of [place] or sudden below the age of 55 - Social History Alcohol Use: None Hx Substance Use: No Substance Use Type: Reports: Marijuana Substance Use Comment - Amount & Last Used: daily Smoking Status (MU): Never Smoked Tobacco Review of Systems Constitutional: Negative Positive: Photophobia Positive: Dental Pain Cardiovascular: Negative Respiratory: Negative Positive: Abdominal Pain, Nausea Genitourinary: Negative Musculoskeletal: Negative Skin: Negative Positive: Headache Psychological: Normal All Other Systems Reviewed And Are Negative: Yes Physical Exam - Summary Physical Exam Summary: Neuro exam normal. No evidence of trauma to head or face. No evidence of intraoral abscess. ENT exam otherwise unremarkable. Full range of motion of neck. Abdomen tender in bilateral lower quadrant and suprapubically. Abdominal exam otherwise unremarkable. Triage Information Reviewed: Yes Vital Signs On Initial Exam: Initial Vitals Temp Pulse Resp BP Pulse Ox 98.9 F 68 20 126/80 99 04/02/19 21:30 04/02/19 21:30 04/02/19 21:30 04/02/19 21:30 04/02/19 21:30 Vital Signs Reviewed: Yes Appearance: Positive: Well-Appearing Skin: Positive: Warm Head/Face: Positive: Normal Head/Face Inspection Eyes: Positive: Normal ENT: Positive: Normal ENT inspection Dental: Positive: Dental Fracture @ Neck: Positive: Supple Respiratory/Lung Sounds: Positive: Clear to Auscultation Cardiovascular: Positive: Normal Abdomen Description: Positive: Other: Musculoskeletal: Positive: Normal Neurological: Positive: Normal Psychiatric: Positive: Normal AVPU Assessment: Alert - [place] Coma Scale Best Eye Response: 4 - Spontaneous Best Motor Response: 6 - Obeys Commands Best Verbal Response: 5 - Oriented Coma Scale Total: 15 Diagnostics - Vital Signs Vital Signs Temp Pulse Resp BP Pulse Ox 04/02/19 22:27 22 04/02/19 21:34 73 132/80 100 04/02/19 21:30 98.9 F 68 20 126/80 99 - Laboratory Lab Results: Lab Results 04/02/19 04/02/19 04/02/19 Range/Units 22:13 22:13 22:13 WBC 8.6 (3.5-10.8) 10^3/uL RBC 4.89 (4.18-5.48) 10^6 /uL Hgb 15.5 (14.0-18.0) g/dL Hct 42 (42-52) % MCV 86 (80-94) fL MCH 32 H (27-31) pg MCHC 37 H (31-36) g/dL RDW 15 (10-15) % Plt Count 254 (150-450) 10^3/uL MPV 7.5 (7.4-10.4) fL Neut % (Auto) 86.1 % Lymph % (Auto) 7.2 % [place] % (Auto) 5.5 % Eos % (Auto) 0.8 % Baso % (Auto) 0.4 % Absolute Neuts (auto) 7.4 (1.5-7.7) 10^3/ul Absolute Lymphs (auto) 0.6 L (1.0-4.8) 10^3/ul Absolute Monos (auto) 0.5 (0-0.8) 10^3/ul Absolute Eos (auto) 0.1 (0-0.6) 10^3/ul Absolute Basos (auto) 0.0 (0-0.2) 10^3/ul Absolute Nucleated RBC 0.0 10^3/ul Nucleated RBC % 0.1 Sodium 140 (135-145) mmol/L Potassium 3.5 (3.5-5.0) mmol/L Chloride 106 (101-111) mmol/L Carbon Dioxide 25 (22-32) mmol/L Anion Gap 9 (2-11) mmol/L BUN 5 L (6-24) mg/dL Creatinine 0.71 (0.67-1.17) mg/dL Est GFR ( Amer) 164.9 (>60) Est GFR (Non-Af Amer) 136.3 (>60) BUN/Creatinine Ratio 7.0 L (8-20) Glucose 110 H (70-100) mg/dL Lactic Acid 1.6 (0.5-2.0) mmol/L Calcium 9.6 (8.6-10.3) mg/dL Total Bilirubin 2.10 H (0.2-1.0) mg/dL AST 14 (13-39) U/L ALT 11 (7-52) U/L Alkaline Phosphatase 59 (34-104) U/L C-Reactive Protein < 1.00 (<8.01) mg/L Total Protein 7.4 (6.4-8.9) g/dL Albumin 4.7 (3.2-5.2) g/dL Globulin 2.7 (2-4) g/dL Albumin/Globulin Ratio 1.7 (1-3) Lipase 16 (11.0-82.0) U/L Result Diagrams: 04/02/19 22:13 04/02/19 22:13 Lab Statement: Any lab studies that have been ordered have been reviewed, and results considered in the medical decision making process. Complex Multi-Symp Course/Dx Course Of Treatment: Patient complains of persistent right lower quadrant pain 6 months since right inguinal hernia surgery at [facility]. Abdominal pain is constant, daily, has been evaluated by original hernia surgeon with no definitive diagnosis. Also complains of persistent right-sided headache 2 months with associated nausea. Headache described as right-sided, constant, associated with nausea and photophobia. Has MRI pending this coming Tuesday. Also complains of right-sided tooth pain 1 month with dentist appointment pending this Tuesday for tooth removal. Patient has existing prescription for tramadol for pain. Denies fever, cough, sore throat, CP, SOB, N/V/D, change in urine, change in BM, penile or testicular symptoms. Medical history is asthma. Abdominal surgical history is hernia repair September 2018. Physical exam:Neuro exam normal. No evidence of trauma to head or face. No evidence of intraoral abscess. ENT exam otherwise unremarkable. Full range of motion of neck. Abdomen tender in bilateral lower quadrant and suprapubically. Abdominal exam otherwise unremarkable. Vital signs within normal limits. Labs unremarkable. CT abdomen and pelvis unremarkable. Patient initially told nurse headache had resolved with Toradol and morphine. Subsequently told this provider shortly afterwards that symptoms had not changed. Per [facility] patient has existing prescription for tramadol. Has MRI follow-up in place tomorrow for headache, is being followed by a surgeon for right lower quadrant pain, and has appointment this week to have tooth removed. - Diagnoses Provider Diagnoses: Headache, Right lower quadrant pain, Pain, dental Discharge - Sign-Out/Discharge Documenting (check all that apply): Patient Departure Patient Received Moderate/Deep Sedation with Procedure: No - Discharge Plan Condition: Stable Disposition: HOME Prescriptions: Ondansetron ODT TAB* [Zofran 4 MG Odt TAB*] 4 mg PO Q8H PRN 4 Days #14 tab.odt PRN Reason: Nausea Patient Education Materials: Acute Headache (ED), Abdominal Pain (ED), Toothache (ED) Forms: *Work Release Referrals: No Primary Care Phys,NOPCP [Primary Care Provider] - Additional Instructions: Follow-up with your surgeon for abdominal pain. Follow-up with your neurologist for MRI. Follow-up with your dentist for dental pain. Use existing ascription for tramadol for pain. Also alternate ibuprofen 600 mg with Tylenol 650 mg every 3 hours for pain. Return to the ED for any new or worsening symptoms. - Billing Disposition and Condition Condition: STABLE Disposition: Home
[2019-04-03] MEDS ORDERED: oxyCODONE TAB* 5 MG TAB PO ONE (01:17)
[2019-04-03] MEDS ORDERED: Ondansetron ODT TAB* 4 MG PO ONE (01:17)
[2019-04-03 01:44] VITALS: BP 115/75
== END 2019-04-03 01:46 | disposition home or self-care (01) ==
LOC: ED 21:30
DX: R51 Headache (principal); R10.31 Right lower quadrant pain; K08.89 Other specified disorders of teeth and supporting structures; R11.0 Nausea; R10.9 Unspecified abdominal pain
CPT/HCPCS: 36415; 74177; 80053; 83605; 83690; 85025; 86140; 96374; 96375; 99282; A9270-GY; J1885; J2270; Q9967

== ENCOUNTER 2019-07-09 14:02 | Emergency (ER) | payer BC ==
[2019-07-09 14:08] VITALS: BP 117/74
--- NOTE | 2019-07-09 14:10 | UC ---
Respiratory Complaint HPI - HPI Summary HPI Summary: 24 yo male presents with cold symptoms. He tells me that for the past week he has had sinus congestion, runny nose, sore throat, and dry cough. He has been taking ibuprofen and theraflu with no relief. Over the last 2 nights has felt feverish, but has not taken his temperature. His cough feels worse and his lungs feel tight. Denies SOB, chest pain, rash, n/v. - History of Current Complaint Chief Complaint: UCRespiratory Stated Complaint: COUGH Time Seen by Provider: 07/09/19 14:09 Hx Obtained From: Patient Onset/Duration: Sudden Onset Severity Initially: Moderate Severity Currently: Severe Pain Intensity: 10 Pain Scale Used: 0-10 Numeric Character: Cough: Nonproductive - Allergies/Home Medications Allergies/Adverse Reactions: Allergies Allergy/AdvReac Type Severity Reaction Status Date / Time diphenhydramine Allergy Hives Verified 07/09/19 14:08 latex Allergy Hives Verified 07/09/19 14:08 pomegranate Allergy Swelling Verified 07/09/19 14:08 Of Face,Lips,& Throat PMH/Surg Hx/FS Hx/Imm Hx Respiratory History: Asthma Psychological History: Anxiety - Surgical History Surgical History: Yes Surgery Procedure, Year, and Place: Hernia repair, 09/26. RIGHT upper eyelid I/ D of cyst - Family History Known Family History: Positive: None, Other - [place] Negative: Cardiac Disease, Hypertension Family History: Per patient and mother, no FHx of [place] or sudden below the age of 55 - Social History Lives: With Family Alcohol Use: Rare Substance Use Type: Marijuana Substance Use Comment - Amount & Last Used: daily Smoking Status (MU): Never Smoked Tobacco - Immunization History Most Recent Influenza Vaccination: none 2017 Review of Systems All Other Systems Reviewed And Are Negative: No Constitutional: Positive: Fever Skin: Positive: Negative Eyes: Positive: Negative ENT: Positive: Sore Throat, Nasal Discharge, Sinus Congestion, Sinus Pain/ Tenderness Respiratory: Positive: Cough Cardiovascular: Positive: Negative Gastrointestinal: Positive: Negative Neurological: Positive: Negative Psychological: Positive: Negative Physical Exam - Summary Physical Exam Summary: GENERAL: NAD. WDWN. No pain distress. SKIN: No rashes, sores, lesions, or open wounds. HEENT: Head: AT/NC Eyes: EOM intact. Conjunctiva clear without inflammation or discharge. Ears: Hearing grossly normal. TMs intact, no bulging, erythema, or edema. Nose: Nasal mucosa pink and moist. NTTP maxillary and frontal sinus. Throat: Posterior oropharynx without exudates, erythema, or tonsillar enlargement. Uvula midline. NECK: Supple. Nontender. No lymphadenopathy. CHEST: Mild wheezing throughout. No accessory muscle use. Breathing comfortably and in no distress. CV: RRR. Without m/r/g. Pulses intact. Cap refill <2seconds NEURO: Alert. PSYCH: Age appropriate behavior. Triage Information Reviewed: Yes Vital Signs: Initial Vital Signs Temp 99.2 F 07/09/19 14:05 Pulse 88 07/09/19 14:05 Resp 18 07/09/19 14:05 BP 117/74 07/09/19 14:05 Pulse Ox 100 07/09/19 14:05 Vital Signs Reviewed: Yes Diagnostics - Radiology CXR Radiology Interpretation Completed By: Radiologist Summary of Radiographic Findings: IMPRESSION: NO EVIDENCE FOR ACTIVE CARDIOPULMONARY DISEASE. Respiratory Course/Dx - Course Course Of Treatment: CXR as above. Suspect asthma exacerbation/bronchitis. In the clinic he was given a duoneb treatment with good relief and felt easier to take a deep breath. Will rx for prednisone and albuterol - Differential Dx/Diagnosis Provider Diagnosis: Bronchitis Discharge ED - Sign-Out/Discharge Documenting (check all that apply): Patient Departure All imaging exams completed and their final reports reviewed: Yes - Discharge Plan Condition: Stable Disposition: HOME Prescriptions: Albuterol HFA INHALER* [Ventolin HFA Inhaler*] 1 puff INH Q6H PRN #1 mdi PRN Reason: Sob/Wheezing predniSONE TAB* [Deltasone 20 MG TAB*] 40 mg PO DAILY #10 tab Patient Education Materials: Acute Bronchitis (ED), Viral Syndrome (ED) Forms: *Work Release Referrals: No Primary Care Phys,NOPCP [Primary Care Provider] - Additional Instructions: If you develop a fever, shortness of breath, chest pain, new or worsening symptoms - please call your PCP or go to the ED immediately. Continue taking your over the counter cold medications and be rechecked if your symptoms have not improved in 5-7 days - Billing Disposition and Condition Condition: STABLE Disposition: Home
[2019-07-09] MEDS ORDERED: Albuterol/Ipratropium NEB.SOL* Albuterol 2.5 MG/Ipratropium 0.5 MG 3 ML INH ONE (14:14)
== END 2019-07-09 14:57 | disposition home or self-care (01) ==
LOC: UCEAST 14:02
DX: J45.909 Unspecified asthma, uncomplicated (principal); R09.89 Other specified symptoms and signs involving the circulatory and respiratory systems; J34.89 Other specified disorders of nose and nasal sinuses; J02.9 Acute pharyngitis, unspecified; Z91.040 Latex allergy status; Z88.8 Allergy status to other drugs, medicaments and biological substances; Z91.018 Allergy to other foods
CPT/HCPCS: 71046; 99212; A9270-GY; G0463

== ENCOUNTER 2019-10-11 14:56 | Emergency (ER) | payer BC, OTHER ==
[2019-10-11] MEDS ORDERED: Ondansetron ODT TAB* 4 MG PO ONE (15:14)
[2019-10-11] MEDS ORDERED: Acetaminophen TAB* 325 MG PO ONE (15:14)
[2019-10-11 15:41] LABS: Influenza A Molecular NEGATIVE (Negative); Influenza B Molecular NEGATIVE (Negative)
[2019-10-11] MEDS ORDERED: NS 0.9% 1000 ML** 1,000 ML IV ONE (15:51)
--- NOTE | 2019-10-11 15:57 | UC ---
FLU HPI - HPI Summary HPI Summary: 24-year-old male comes in with a chief complaint of headache neck pain bodyaches nausea vomiting abdominal pain. Yesterday at about 2 in the morning had sudden onset of neck pain and body aches. Since then he's been having nausea and vomiting and has diffuse abdominal pain. Is also having fevers. He also has a headache. It hurts to move his neck. First couple times he threw up he reported it was red. Patient has not had any bowel movements since this started. - History of Current Complaint Chief Complaint: UCRespiratory Stated Complaint: VOMITING FEVER Time Seen by Provider: 10/11/19 15:39 Pain Intensity: 10 - Allergy/Home Medications Allergies/Adverse Reactions: Allergies Allergy/AdvReac Type Severity Reaction Status Date / Time diphenhydramine Allergy Hives Verified 10/11/19 15:18 latex Allergy Hives Verified 10/11/19 15:18 pomegranate Allergy Swelling Verified 10/11/19 15:18 Of Face,Lips,& Throat PMH/Surg Hx/FS Hx/Imm Hx Previously Healthy: Yes - Surgical History Surgical History: Yes Surgery Procedure, Year, and Place: Hernia repair, 09/26. RIGHT upper eyelid I/ D of cyst - Family History Known Family History: Positive: None, Other - [place] Negative: Cardiac Disease, Hypertension Family History: Per patient and mother, no FHx of [place] or sudden below the age of 55 - Social History Alcohol Use: Rare Substance Use Type: Marijuana Substance Use Comment - Amount & Last Used: every other day Smoking Status (MU): Never Smoked Tobacco - Immunization History Most Recent Influenza Vaccination: none 2017 Review of Systems All Other Systems Reviewed And Are Negative: Yes Constitutional: Positive: Fever, Chills, Other - see hpi Skin: Positive: Negative Eyes: Positive: Negative ENT: Positive: Sore Throat - mild, Nasal Discharge, Sinus Congestion Respiratory: Positive: Negative Cardiovascular: Positive: Negative Gastrointestinal: Positive: Abdominal Pain, Vomiting, Nausea, Other - see hpi Genitourinary: Positive: Negative Motor: Positive: Negative Neurovascular: Positive: Negative Musculoskeletal: Positive: Myalgia, Other: - see hpi Neurological: Positive: Headache Psychological: Positive: Negative Is Patient Immunocompromised?: No Physical Exam Triage Information Reviewed: Yes Appearance: Well-Nourished, Ill-Appearing - mild, Pain Distress - mild with neck rom Vital Signs: Initial Vital Signs Temp 104.2 F 10/11/19 15:06 Pulse 94 10/11/19 15:06 Resp 22 10/11/19 15:06 BP 99/67 10/11/19 15:06 Pulse Ox 100 10/11/19 15:06 Vital Signs Reviewed: Yes Eye Exam: Normal Eyes: Positive: Conjunctiva Clear ENT: Positive: Pharyngeal erythema, Nasal congestion, Nasal drainage, TMs normal Neck: Positive: Other: - Patient is able to flex and extend his neck however with a great deal of pain Respiratory: Positive: Lungs clear, Normal breath sounds, No respiratory distress Cardiovascular: Positive: RRR Abdomen Description: Positive: Other: - Diffuse abdominal tenderness to palpation. Bowel Sounds: Positive: Hypoactive Musculoskeletal: Positive: Strength Intact Neurological: Positive: Alert Psychological: Positive: Age Appropriate Behavior Skin Exam: Normal Flu Course/Dx - Course Course Of Treatment: Influenza is negative. Given the patient's symptoms of headache neck pain fevers abdominal pain I recommended further evaluation and care and emergency Department. An IV was started and normal saline was started. Patient was given Zofran 4 mg by mouth. Patient is transported to the emergency department by the exam ambulance. - Differential Dx/Diagnosis Provider Diagnosis: Fever, Headache, Neck pain, Abdominal pain, Nausea & vomiting Discharge ED - Sign-Out/Discharge Documenting (check all that apply): Patient Departure All imaging exams completed and their final reports reviewed: No Studies - Discharge Plan Condition: Stable Disposition: TRANS HIGHER LVL OF CARE FAC Referrals: No Primary Care Phys,NOPCP [Primary Care Provider] - - Billing Disposition and Condition Condition: STABLE Disposition: Trans Higher Lvl of Care Fac
[2019-10-11 16:08] VITALS: BP 135/84
== END 2019-10-11 16:30 | disposition short-term general hospital (02) ==
LOC: UCEAST 14:56
DX: R50.9 Fever, unspecified (principal); R51 Headache; M54.2 Cervicalgia; R10.9 Unspecified abdominal pain; R11.2 Nausea with vomiting, unspecified; R09.81 Nasal congestion; J02.9 Acute pharyngitis, unspecified; Z88.8 Allergy status to other drugs, medicaments and biological substances; Z91.018 Allergy to other foods; Z91.011 Allergy to milk products
CPT/HCPCS: 99213; A9270-GY; G0463

== ENCOUNTER 2019-10-13 19:45 | Emergency (ER) | payer OTHER ==
[2019-10-13] MEDS ORDERED: Metoclopramide IV* 5 MG/ML 2 ML VIAL IV ONE (20:22)
[2019-10-13] MEDS ORDERED: Ketorolac INJ* 30 MG/ML 1 ML VIAL IV PUSH ONE (20:23)
--- NOTE | 2019-10-13 20:25 | ED ---
Influenza-Like Illness - HPI Summary HPI Summary: Patient complains of body aches, headache, and/V, SOB, photosensitivity, neck pain and stiffness, lightheadedness 4-5 days. Seen here 10/11/19 for same symptoms, with negative brain CT, negative CSF, negative for flu. Denies change in symptoms other than that they have progressed. Denies fever, cough, CP, diarrhea, abdominal pain, change in urine, change in BM. Medical history is asthma. Denies recreational drug use, EtOH or trauma. Denies recent travel. - History of Current Complaint Chief Complaint: EDNeckComplaint Time Seen by Provider: 10/13/19 20:04 Hx Obtained From: Patient, Family/Global Position System Technician Onset/Duration: Gradual Onset, Lasting Days Severity: Moderate Associated Signs & Symptoms: Myalgia, Headache, Vomiting - Allergy/Home Medications Allergies/Adverse Reactions: Allergies Allergy/AdvReac Type Severity Reaction Status Date / Time diphenhydramine Allergy Hives Verified 10/11/19 15:18 latex Allergy Hives Verified 10/11/19 15:18 pomegranate Allergy Swelling Verified 10/11/19 15:18 Of Face,Lips,& Throat PMH/Surg Hx/FS Hx/Imm Hx Endocrine/Hematology History: Denies: Hx Diabetes, Hx Thyroid Disease Cardiovascular History: Denies: Hx Hypertension Respiratory History: Reports: Hx Asthma Denies: Hx Chronic Obstructive Pulmonary Disease (COPD) GI History: Denies: Hx Ulcer History: Denies: Hx Renal Disease Sensory History: Reports: Hx Eye Prosthesis, Hx Deafness Denies: Hx Legally Blind Opthamlomology History: Reports: Hx Eye Prosthesis Denies: Hx Legally Blind EENT History: Denies: Hx Deafness Neurological History: Reports: Hx Dementia Psychiatric History: Reports: Hx Autism - Surgical History Surgery Procedure, Year, and Place: Hernia repair, 09/26. RIGHT upper eyelid I/ D of cyst Infectious Disease History: No Infectious Disease History: Denies: Hx Clostridium Difficile, Hx Hepatitis, Hx Human Immunodeficiency Virus (HIV), Hx of Known/Suspected MRSA, Hx Shingles, Hx Tuberculosis, Hx Known/ Suspected VRE, Hx Known/Suspected VRSA, History Other Infectious Disease, Traveled Outside the [place] in Last 30 Days - Family History Known Family History: Positive: None, Other - [place] Negative: Cardiac Disease, Hypertension Family History: Per patient and mother, no FHx of [place] or sudden below the age of 55 - Social History Alcohol Use: Rare Hx Substance Use: No Substance Use Type: Reports: Marijuana Substance Use Comment - Amount & Last Used: every other day Hx Tobacco Use: No Smoking Status (MU): Never Smoked Tobacco Review of Systems Constitutional: Negative Positive: Photophobia ENT: Negative Cardiovascular: Negative Positive: Shortness Of Breath Positive: Vomiting, Nausea Genitourinary: Negative Positive: Myalgia Skin: Negative Positive: Headache Psychological: Normal All Other Systems Reviewed And Are Negative: Yes Physical Exam Triage Information Reviewed: Yes Vital Signs On Initial Exam: Initial Vitals Temp Pulse Resp BP Pulse Ox 98.0 F 76 22 119/82 98 10/13/19 19:46 10/13/19 19:46 10/13/19 19:46 10/13/19 19:46 10/13/19 19:46 Vital Signs Reviewed: Yes Appearance: Positive: Ill-Appearing Skin: Positive: Warm Head/Face: Positive: Normal Head/Face Inspection Eyes: Positive: Normal ENT: Positive: Normal ENT inspection Neck: Positive: Nuchal Rigidity Respiratory/Lung Sounds: Positive: Clear to Auscultation Cardiovascular: Positive: Normal Abdomen Description: Positive: Nontender Musculoskeletal: Positive: Normal Neurological: Positive: Normal Psychiatric: Positive: Normal AVPU Assessment: Alert - Ang Coma Scale Best Eye Response: 4 - Spontaneous Best Motor Response: 6 - Obeys Commands Best Verbal Response: 5 - Oriented Coma Scale Total: 15 Procedures - Sedation Patient Received Moderate/Deep Sedation with Procedure: No Diagnostics - Vital Signs Vital Signs Temp Pulse Resp BP Pulse Ox 10/13/19 19:46 98.0 F 76 22 119/82 98 - Laboratory Result Diagrams: 10/13/19 20:50 10/13/19 20:50 Lab Statement: Any lab studies that have been ordered have been reviewed, and results considered in the medical decision making process. Flu Symptom Course/Dx - Course Course Of Treatment: Patient complains of body aches, headache, and/V, SOB, photosensitivity, neck pain and stiffness, lightheadedness 4-5 days. Seen here 10/11/19 for same symptoms, with negative brain CT, negative CSF, negative for flu. Denies change in symptoms other than that they have progressed. Denies fever, cough, CP, diarrhea, abdominal pain, change in urine, change in BM. Medical history is asthma. Denies recreational drug use, EtOH or trauma. Denies recent travel. Vital signs normal limits. Hemoglobin 12.9. CK 1613. Lactate dehydrogenase 313. CRP 86. Total bili 4.2. History of same. Potassium 3.3. Labs otherwise unremarkable. No significant change from labs on 10/11/19. Patient feels much improved after 3 L normal saline and migraine cocktail. Complete workup on 10/11/19 negative. - Diagnoses Provider Diagnoses: Viral syndrome, Total bilirubin, elevated Discharge ED - Sign-Out/Discharge Documenting (check all that apply): Patient Departure - Discharge Plan Condition: Stable Disposition: HOME Prescriptions: Diazepam TAB(*) [Valium TAB(*)] 5 mg PO TID PRN 2 Days #5 tab MDD 3 tabs PRN Reason: Spasms Ondansetron ODT TAB* [Zofran 4 MG Odt TAB*] 4 mg PO Q8H PRN 4 Days #14 tab.odt PRN Reason: Nausea Patient Education Materials: Viral Syndrome (ED) Forms: *Work Release Referrals: No Primary Care Phys,NOPCP [Primary Care Provider] - Chris Gonzalez MD [Medical Doctor] - Additional Instructions: Alternate ibuprofen 600 mg with Tylenol 650 mg every 3 hours for body aches and headache and fever control. Drink plenty of fluids to maintain hydration. Use Zofran as directed for nausea. Take Valium as directed for muscle spasm of back and neck. Follow-up with primary care. Follow-up with GI Dr. Gonzalez for further evaluation of elevated bilirubin levels. Return to the ED for any new or worsening symptoms. - Billing Disposition and Condition Condition: STABLE Disposition: Home
[2019-10-13] MEDS: NS 0.9% 1000 ML** 2,000 ML IV ONE (20:46)
[2019-10-13 21:29] LABS: Albumin 4.3 g/dL (3.2-5.2); Albumin/Globulin Ratio 1.5 (1-3); C Reactive Protein 86.07 mg/L (<8.01); Calcium 9.4 mg/dL (8.6-10.3); EGFR African American 153.5 (>60); EGFR Non-African American 126.9 (>60); Globulin 2.9 g/dL (2-4); Potassium 3.3 mmol/L (3.5-5.0); Total Bilirubin 4.2 mg/dL (0.2-1.0); Total Protein 7.2 g/dL (6.4-8.9)
[2019-10-13 21:43] LABS: TSH (Thyroid Stimulating Horm) 2.64 mcIU/mL (0.34-5.60)
[2019-10-13 21:49] LABS: ABS Eosinophils 0.1 10^3/ul (0-0.6); ABS Lymphocytes 0.8 10^3/ul (1.0-4.8); ABS Monocytes 0.9 10^3/ul (0-0.8); ABS Neutrophils 6.9 10^3/ul (1.5-7.7); Eosinophil % 0.9 %; Hematocrit 34 % (42-52); Hemoglobin 12.9 g/dL (14.0-18.0); Lymphocyte % 9.2 %; Mean Corpuscular HGB Conc 38 g/dL (31-36); Mean Corpuscular Hemoglobin 32 pg (27-31); Mean Corpuscular Volume 83 fL (80-94); Mean Platelet Volume 8.1 fL (7.4-10.4); Platelet Count 229 10^3/uL (150-450); Red Blood Count 4.06 10^6 /uL (4.18-5.48); Red Cell Distribution Width 15 % (10-15); White Blood Count 8.6 10^3/uL (3.5-10.8)
[2019-10-13] MEDS ORDERED: Magnesium Sulfate 1 GM IV* 1 GM/100 ML BAG IV ONE (22:14)
[2019-10-13] MEDS ORDERED: PROCHLORPERAZINE INJ 5 MG/ML 2 ML VIAL IV ONE (22:15)
[2019-10-13] MEDS ORDERED: Acetaminophen TAB* 325 MG PO ONE (22:16)
[2019-10-13] MEDS ORDERED: NS 0.9% 1000 ML** 1,000 ML IV ONE (22:16)
[2019-10-13 22:18] LABS: Erythrocyte Sed Rate 16 mm/Hr (0-14)
[2019-10-13 22:28] LABS: Indirect Bilirubin 3.4 mg/dL (0.3-1.0)
[2019-10-13 23:53] LABS: Urine Appearance Clear; Urine Bilirubin Negative (Negative); Urine Blood Negative (Negative); Urine Color Straw; Urine Glucose Negative (Negative); Urine Ketones 1+ (Negative); Urine Nitrite Negative (Negative); Urine Protein Negative (Negative); Urine Specific Gravity 1.004 (1.010-1.030); Urine Urobilinogen Negative (Negative)
[2019-10-14 00:54] VITALS: BP 116/75
== END 2019-10-14 01:18 | disposition home or self-care (01) ==
LOC: ED 19:45
DX: B34.9 Viral infection, unspecified (principal); E80.7 Disorder of bilirubin metabolism, unspecified; R06.02 Shortness of breath; M54.9 Dorsalgia, unspecified; R11.2 Nausea with vomiting, unspecified; H53.149 Visual discomfort, unspecified; R51 Headache
CPT/HCPCS: 36415; 71045; 80053; 81003; 82247; 82248; 82550; 83605; 83615; 84443; 85025; 85652; 86140; 87040; 96361; 96365; 96375; 99283; A9270-GY; J0780; J1885; J2765; J3475